=== PATIENT | male | born 1990 | race American Indian/Alaskan Native ===

== ENCOUNTER 2020-05-01 13:01 | Emergency (ER) | payer SELFPAY ==
[2020-05-01 13:06] VITALS: BP 138/74
[2020-05-01 13:41] LABS: Basophils % (Auto) 0.2 % (0.0-1.8); Eosinophils # (Auto) 0.1 K/mm3 (0.0-0.4); Eosinophils % (Auto) 0.6 % (0.0-4.3); Hematocrit 46.5 % (35.5-45.6); Hemoglobin 15.5 gm/dl (11.8-15.2); Lymphocytes # (Auto) 0.8 K/mm3 (1.2-5.4); Lymphocytes % (Auto) 7.1 % (13.4-35.0); Mean Corpuscular HGB Conc 33 % (32-34); Mean Corpuscular Volume 93 fl (84-94); Monocytes # (Auto) 0.5 K/mm3 (0.0-0.8); Monocytes % (Auto) 4.5 % (0.0-7.3); Platelet Count 191 K/mm3 (140-440); Red Blood Count 4.98 M/mm3 (3.65-5.03); Red Cell Distribution Width 13.1 % (13.2-15.2)
[2020-05-01 14:02] LABS: Alanine Aminotransferase 16 units/L (7-56); BUN/Creatinine Ratio 11; Blood Urea Nitrogen 12 mg/dL (9-20); Calcium 8.8 mg/dL (8.4-10.2); Hemolysis Index 6
[2020-05-01] MEDS ORDERED: SODIUM CHLORIDE 0.9% 1000 ML 1,000 ML IV ONE ×2 (14:03→15:27)
[2020-05-01] MEDS ORDERED: ONDANSETRON 4 MG/2 ML INJ IV ONE ×2 (14:03→16:55)
--- NOTE | 2020-05-01 14:15 | Emergency Department Report ---
ED Abdominal Pain HPI - General Chief Complaint: Nausea/Vomiting/Diarrhea Stated Complaint: VOMITING PUI?: No Time Seen by Provider: 05/01/20 13:09 Source: patient Mode of arrival: Wheelchair Limitations: No Limitations - History of Present Illness Initial Comments: Patient is a 37-year-old male that comes to the emergency room today complaining of nausea vomiting and diarrhea. He would not provide much information on initial admission. However, once he got some IV fluids he perked up and began to yell and scream that he needed to go to work. Pt denies abd pain per se. He states his stomach cramps with vomiting and diar mayito. No family members or friends with the same. Denies eating bad food. On arrival patient was on a stretcher in position. His vital signs were stable. He had no hypotension or tachycardia. No fever. He did not endorse fever or chills. He denies shortness of breath or chest pain. Patient denies any significant medical history. Will not answer my questions regarding drugs alcohol and cigarettes. -: Gradual, days(s) Consistency: intermittent Associated Symptoms: nausea, vomiting, diarrhea. denies: fever, chills, constipation, dysuria, hematemesis, hematochezia, melena, hematuria, anorexia, syncope - Related Data Previous Rx's Medication Instructions Recorded Last Taken Type Ondansetron [Zofran Odt] 4 mg PO Q8HR PRN #10 tab.rapdis 05/01/20 Unknown Rx Allergies Allergy/AdvReac Type Severity Reaction Status Date / Time No Known Allergies Allergy Unverified 05/01/20 13:02 ED Review of Systems ROS: Stated complaint: VOMITING Other details as noted in HPI Comment: All other systems reviewed and negative ED Past Medical Hx - Past Medical History Previous Medical History?: No - Surgical History Past Surgical History?: No - Family History Family history: no significant - Social History Smoking Status: Current Every Day Smoker Substance Use Type: Alcohol - Medications Home Medications: Home Medications Medication Instructions Recorded Confirmed Last Taken Type Ondansetron [Zofran Odt] 4 mg PO Q8HR PRN #10 tab.rapdis 05/01/20 Unknown Rx ED Physical Exam - General Limitations: No Limitations General appearance: alert - Head Head exam: Present: atraumatic, normocephalic - Eye Eye exam: Present: normal appearance - ENT ENT exam: Present: mucous membranes dry - Neck Neck exam: Present: normal inspection - Respiratory Respiratory exam: Present: normal lung sounds bilaterally. Absent: respiratory distress - Cardiovascular Cardiovascular Exam: Present: regular rate, normal rhythm. Absent: systolic murmur, diastolic murmur, rubs, gallop - GI/Abdominal GI/Abdominal exam: Present: soft, normal bowel sounds - Rectal Rectal exam: Present: deferred - Extremities Exam Extremities exam: Present: normal inspection - Back Exam Back exam: Present: normal inspection - Neurological Exam Neurological exam: Present: alert, oriented X3 - Skin Skin exam: Present: warm, dry, intact, pallor. Absent: rash ED Course Vital Signs 05/01/20 13:03 Temperature 98.6 F Pulse Rate 68 Respiratory 20 Rate Blood Pressure 138/74 O2 Sat by Pulse 98 Oximetry ED Medical Decision Making - Lab Data Result diagrams: 05/01/20 13:20 05/01/20 13:20 - Radiology Data Radiology results: report reviewed, image reviewed - Medical Decision Making Labs 05/01/20 05/01/20 13:20 13:20 WBC 12.0 H RBC 4.98 Hgb 15.5 H Hct 46.5 H MCV 93 MCH 31 MCHC 33 RDW 13.1 L Plt Count 191 Lymph % (Auto) 7.1 L Sunflower % (Auto) 4.5 Eos % (Auto) 0.6 Baso % (Auto) 0.2 Lymph # (Auto) 0.8 L Sunflower # (Auto) 0.5 Eos # (Auto) 0.1 Baso # (Auto) 0.0 Seg Neutrophils % 87.6 H Seg Neutrophils # 10.5 H Sodium 142 Potassium 4.3 Chloride 112.1 H Carbon Dioxide 20 L Anion Gap 14 BUN 12 Creatinine 1.1 Estimated GFR > 60 BUN/Creatinine Ratio 11 Glucose 133 H Calcium 8.8 Total Bilirubin 0.40 AST 25 ALT 16 Alkaline Phosphatase 66 Total Protein 6.9 Albumin 4.0 Albumin/Globulin Ratio 1.4 Lipase 32 Vital Signs 05/01/20 13:03 Temperature 98.6 F Pulse Rate 68 Respiratory 20 Rate Blood Pressure 138/74 O2 Sat by Pulse 98 Oximetry labs noted 2L NS/zofran and flagyl CT noted 1610 on reeval pt ambulatory and yelling that he has to go to work. Taking PO. Dc home with dc plan of care. Pt verbalizes understanding. - Differential Diagnosis RO ACUTE ABD: APPENDICITIS/CHOLEY/PYLO/GASTROENTERITIS Critical care attestation.: If time is entered above; I have spent that time in minutes in the direct care of this critically ill patient, excluding procedure time. ED Disposition Clinical Impression: Abdominal pain, Gastroenteritis Disposition: TO HOME OR SELFCARE Is pt being admited?: No Does the pt Need Aspirin: No Condition: Stable Instructions: Viral Gastroenteritis, Adult, Abdominal Pain, Adult Additional Instructions: BLAND DIET STAY WELL HYDRATED WITH WATER AVOID SPICY FOOD AND ALCOHOL MOTRIN OR TYLENOL FOR PAIN OR FEVER ZOFRAN FOR NAUSEA FOLLOW UP WITH PCP ON WEDNESDAY FOR RECHECK TO BE SURE YOU ARE GETTING BETTER Prescriptions: Ondansetron [Zofran Odt] 4 mg PO Q8HR PRN #10 tab.rapdis PRN Reason: Vomiting Referrals: PRIMARY CARE, [Primary Care Provider] - 3-5 Days CHUCK MENDOZA MD [Staff Physician] - 3-5 Days Time of Disposition: 15:10
[2020-05-01] MEDS ORDERED: metroNIDAZOLE/NS 500 MG/100 ML 500 MG/100 ML BAG IV ONE (14:32)
--- NOTE | 2020-05-01 15:54 | Cat Scan Report ---
CT ABDOMEN AND PELVIS WITH CONTRAST HISTORY: Abdominal pain COMPARISON: None TECHNIQUE: Routine abdominal and pelvic CT exam performed following intravenous contrast administrat ion. Patient given 100 cc O[address] [id number]. All [address] scans at this location are performed using CT dose re duction for ALARA by means of automated exposure control. FINDINGS: CT ABDOMEN: Lung Bases: No significant abnormality. Liver: No significant abnormality. Biliary: No significant abnormality. Spleen: No significant abnormality. Unenlarged. Pancreas: No significant abnormality. Adrenals: No significant abnormality. Kidneys: No significant abnormality. Lymphatics: No lymphadenopathy. Vasculature: No significant abnormality. Bowel/Peritoneum: There is diffuse mild wall thickening and hyperenhancement of the small bowel sugge sting neuritis. There is no obstruction, pneumatosis, or free air. Normal appendix. CT PELVIC: : No significant abnormality. Lymphatics: No lymphadenopathy. Osseous Structures: No aggressive appearing osseous lesions. 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 Additional Findings: None IMPRESSION: 1. Findings suggesting enteritis without obstruction or free air. Signer Name: Oseas Foreman MD Signed: 05/01/2020 3:49 PM Workstation Name: [id number]
== END 2020-05-01 15:30 | disposition home or self-care (01) ==
LOC: ED 13:01
DX: K52.9 Noninfective gastroenteritis and colitis, unspecified (principal); R10.9 Unspecified abdominal pain; F17.200 Nicotine dependence, unspecified, uncomplicated; Z79.899 Other long term (current) drug therapy
CPT/HCPCS: 36415; 74177; 80053; 83690; 85025; 96361; 96365; 96375; 96376; 99284; J2405; J7030; Q9967